=== PATIENT | male | born 1945 | race Caucasian/White ===

== ENCOUNTER 2017-04-29 17:12 | Inpatient (IN) | payer MEDICARE, OTHER ==
[~2017-04-29] VITALS: Ht 177.8 cm; Wt 86.7 kg
--- NOTE | 2017-04-29 17:12 | NUR ---
ARRIVAL PT TO 2 VIA EMS. PT ALERT AND COOP. NO ACUTE DISTRESS. PT TRANSFERRED TO BED WITH LOTS OF PAIN NOTED UPON TRANSFER. PT PLACED ON MONITOR AND TRIAGE DONE
[2017-04-29] MEDS ORDERED: TORADOL ONE (18:20)
[2017-04-29] MEDS ORDERED: TORADOL IV STA (18:31)
[2017-04-29 18:55] LABS: BASOPHIL # 0.1 10^3/uL (0.0-0.1); BASOPHIL % 0.7 % (0.0-0.2); EOSINOPHIL # 0.3 10^3/uL (0.0-0.2); EOSINOPHIL % 3.4 % (0.0-5.0); HEMATOCRIT 33.8 % (37.0-53.0); HEMOGLOBIN 10.1 g/dL (13.9-16.3); LYMPHOCYTES # 1.1 10^3/uL (1.0-4.8); MEAN CELL HGB 22.1 pg (26-34); MEAN CELL HGB CONCENTRATION 29.9 g/dL (33-37); MEAN PLATELET VOLUME 8.7 fL (7.8-11.0); MONOCYTES # 0.7 10^3/uL (0.3-0.8); MONOCYTES % 8.9 % (5.0-12.0); NEUTROPHILS % 72.9 % (41.0-85.0); WHITE BLOOD CELL 8.2 10^3/uL (4.5-11.0)
--- NOTE | 2017-04-29 19:10 | NUR ---
RETURNED TO FROM CT
[2017-04-29 19:20] LABS: CALCIUM 8.7 mg/dL (8.4-10.5); CARBON DIOXIDE 27.7 mmol/L (20.0-32)
--- NOTE | 2017-04-29 19:22 | DIREP ---
PROCEDURE: CT SPINE LUMBAR W/O TECHNIQUE:Axial cuts were obtained through the lumbar spine. The images were viewed at bone settings. COMPARISON:None. INDICATIONS:pain, sudden onset back pain, no injury FINDINGS: ALIGNMENT:Normal. VERTEBRAE:Normal. PARASPINAL AREA:Normal. OTHER:No additional findings. LUMBAR DISC LEVELS T12-L1:Normal. L1-L2:Normal. L2-L3:Mild broad-based disc bulge without significant stenosis. L3-L4:Mild broad-based disc bulge with facet sclerosis and hypertrophy. No significant stenosis L4-L5:Small broad-based disc bulge. There is disc and osteophyte, with large anteriorly directed osteophyte. Moderate facet sclerosis and hypertrophy. No significant stenosis L5-S1:Small broad-based disc bulge without significant stenosis CONCLUSION:Multiple disc bulges. No significant stenosis is identified Dictated by: Montana Jackman MD on 04/29/2017 at 07:19 PM
--- NOTE | 2017-04-29 19:29 | DIREP ---
PROCEDURE:CT SPINE THORACIC W/O COMPARISON:None. INDICATIONS:pain, thoracic region, no injury TECHNIQUE:Multi-planar CT images were obtained and created without intravenous contrast. FINDINGS: VERTEBRAE: Mild compressive deformity along the anterior aspect of T7. This is age indeterminate. PARASPINAL AREA:Normal. DISC LEVELS:Normal. ALIGNMENT:Normal. OTHER:Negative. CONCLUSION:Mild age-indeterminate compressive deformity at T7. If clinically relevant, consider MRI or bone scan for further evaluation Dictated by: Montana Jackman MD on 04/29/2017 at 07:23 PM
[2017-04-29 20:04] LABS: BILIRUBIN,URINE NEGATIVE (NEGATIVE); UROBILINOGEN,URINE NORMAL (NEGATIVE)
[2017-04-29 20:12] LABS: APPEARANCE,URINE CLOUDY (CLEAR); UA COLOR YELLOW (YELLOW); WBC,URINE TNTC WBC/HPF (0-2)
[2017-04-29] MEDS ORDERED: ROCEPHIN 1,000 MG in NS 100ML 100 ML IV STA (20:27)
--- NOTE | 2017-04-29 20:27 | ER.PDOC ---
General Chief Complaint: Lower Back Pain or Injury Stated Complaint: BACK PAIN TRAVEL OUT OF US: No Time seen by MD: 19:24 Source: patient, family Exam Limitations: no limitations History of Present Illness Timing/Duration: 24 hours Severity: severe Associated Symptoms: denies symptoms Allergies: Coded Allergies: clopidogrel (Verified Allergy, Severe, SEIZURE, 04/29/17) Family History Significant Family History: no pertinent family hx Social History Smoking: non-smoker Alcohol Use: none Drug Use: none Review of Systems Constitutional: denies fever EENTM: denies throat pain Respiratory: denies cough Gastrointestinal: denies abdominal pain Genitourinary: denies dysuria Musculoskeletal: back pain Psychiatric/Neurological: anxiety All Other Systems: Reviewed and Negative Physical Exam General Appearance: Anxious, Severe Distress EENT: eyes nml inspection, nml ENT inspection, pharynx nml Neck: Non-Tender, Full Range of Motion Respiratory: chest non-tender, lungs clear, normal breath sounds CVS: reg rate & rhythm Gastrointestinal: Normal Bowel Sounds, No Organomegaly, No Pulsatile Mass Back: Normal Inspection, No CVA Tenderness Extremities: Normal Range of Motion, Non-Tender, Normal Inspection Neurologic/Psychiatric: category director II-XII NML as Tested Skin: Normal Color Lymphatic: No Adenopathy Results/Orders Results/Orders Laboratory Tests Test 04/29/17 18:50 04/29/17 20:00 White Blood Count 8.2 10^3/uL (4.5-11.0) Red Blood Count 4.57 10^6/uL (4.50-5.90) Hemoglobin 10.1 g/dL (13.9-16.3) Hematocrit 33.8 % (37.0-53.0) Mean Corpuscular Volume 74.0 fL (78-100) Mean Corpuscular Hemoglobin 22.1 pg (26-34) Mean Corpuscular Hemoglobin Concent 29.9 g/dL (33-37) Red Cell Distribution Width 16.0 % (11.5-14.5) Platelet Count 256 10^3/uL (150-400) Mean Platelet Volume 8.7 fL (7.8-11.0) Neutrophils (%) (Auto) 72.9 % (41.0-85.0) Lymphocytes (%) (Auto) 14.0 % (24.0-44.0) Monocytes (%) (Auto) 8.9 % (5.0-12.0) Neutrophils # (Auto) 6.0 10^3/uL (1.8-7.7) Lymphocytes # (Auto) 1.1 10^3/uL (1.0-4.8) Monocytes # (Auto) 0.7 10^3/uL (0.3-0.8) Absolute Immature Granulocyte (auto 0.01 10^3 u/L (0-2) Eosinophils % 3.4 % (0.0-5.0) Basophils % 0.7 % (0.0-0.2) Basophils # 0.1 10^3/uL (0.0-0.1) Eosinophil Count 0.3 10^3/uL (0.0-0.2) Sodium Level 143 mmol/L (132-145) Potassium Level 4.3 mmol/L (3.6-5.2) Chloride Level 107.0 mmol/L (96-109) Carbon Dioxide Level 27.7 mmol/L (20.0-32) Anion Gap 12.6 Blood Urea Nitrogen 25 mg/dL (7-18) Creatinine 1.60 mg/dL (0.59-1.40) Estimated GFR () 51.5 BUN/Creatinine Ratio 15.0 Glucose Level 110 mg/dL (70-110) Calcium Level 8.7 mg/dL (8.4-10.5) Total Bilirubin 0.3 mg/dL (0.2-1.0) Aspartate Amino Transf (AST/SGOT) 13 U/L (0-35) Alanine Aminotransferase (ALT/SGPT) 26 U/L (12-78) Alkaline Phosphatase 68 U/L (50-136) Total Protein 6.7 g/dL (6.4-8.2) Albumin 3.6 g/dL (3.4-5.0) Globulin 3.1 Percent Immature Gran (Cell Imm) 0.10 % (0.00-0.50) Urine Collection Type Void Urine Color Yellow (YELLOW) Urine Appearance Cloudy (CLEAR) Urine Bilirubin Negative MG/DL (NEGATIVE) Urine Ketones Negative (NEGATIVE) Urine Specific [place] 1.010 (1.005-1.035) Urine pH 8 (5.0-6.0) Urine Protein 100 mg/dl (NEGATIVE) Urine Urobilinogen Normal (NEGATIVE) Urine Nitrate Negative (NEGATAIVE) Urine Leukocyte Esterase 500/ul 2+ (NEGATIVE) Urine Blood 150 3+ (NEGATIVE) Urine RBC 0-2 RBC/HPF (NONE SEEN) Urine WBC Tntc WBC/HPF (0-2) Urine Squamous Epithelial Cells Few #/HPF (FEW) Urine Triple Phosphate Crystals 0-1 #/HPF (NONE SEEN) Urine Amorphous Sediment Large (NONE SEEN) Urine Bacteria Many (NONE SEEN) Urine Glucose Normal (NEGATIVE) Administered Medications Medications (Trade) Dose Ordered Sig/Eusebio Route PRN Reason Start Time Stop Time Status Last Admin Dose Admin Ketorolac Tromethamine (Toradol) 30 mg STAT STAT IV 04/29/17 18:31 04/29/17 18:33 DC 04/29/17 18:[address] lumbar + discs old compression frx t7 ua=uti rocephin 1 gram ivpb d/c with cipro tylenol #3 Departure Time of Disposition: 20:34 Disposition: 01 HOME, SELF-CARE Impression: Primary Impression: Low back pain Additional Impression: UTI (urinary tract infection) Condition: Stable Referrals: PCP,UNKNOWN (PCP) PRIMARY CARE PROVIDER Additional Instructions: cipro/ tyleno#3 f/u with for MRI VERN BERNARD MD Apr 29, 2017 20:27
--- NOTE | 2017-04-29 20:35 | NUR ---
PLAN OF CARE PT REQUESTED AND PROVIDED WITH DRINK OF WATER, FAMILY MEMBERS AT BEDSIDE. PRESCRIPTION GIVEN TO ANOTHER FAMILY MEMBER TO TAKE TO [facility] TO GET FILLED.
[2017-04-29] MEDS ORDERED: NS 100ML 100 ML IV ONE (20:37)
[2017-04-29] MEDS ORDERED: ROCEPHIN ONE (20:37)
--- NOTE | 2017-04-29 21:00 | NUR ---
PAIN DR BERNARD UPDATED ON PT'S REQUEST FOR PAIN MED BEFORE HE IS DISCHARGED. MORPHINE 2MG IV ORDERED.
[2017-04-29] MEDS ORDERED: MORPHINE SULFATE ONE (21:01)
[2017-04-29] MEDS ORDERED: MORPHINE SULFATE IV STA (21:03)
--- NOTE | 2017-04-29 21:21 | NUR ---
PAIN PT NOT ABLE TO TOLERATE SITTING UP. INCREASED PAIN WITH ELEVATION OF HOB. DR BERNARD UPDATED.
--- NOTE | 2017-04-29 21:26 | NUR ---
DR ANA BERNARD LEFT MESSAGE ON PHONE WITH DR PEREZ
--- NOTE | 2017-04-29 21:34 | NUR ---
DR ANA PEREZ RETURNED PHONE CALL, DR BERNARD TALKING ON PHONE WITH DR PEREZ
--- NOTE | 2017-04-29 21:50 | NUR ---
ADMIT PT AND FAMILY MEMBERS VERBALIZED UNDERSTANDING OF ADMIT
[2017-04-29] MEDS ORDERED: MORPHINE SULFATE IV PRN (22:00)
[2017-04-29] MEDS ORDERED: ZOFRAN IV PRN (22:30)
[2017-04-29] MEDS: LOVENOX SQ SCH ×2 (22:30→22:46)
[2017-04-29] MEDS: ROCEPHIN 1,000 MG in NS 100ML 100 ML IV SCH (22:30)
[2017-04-29] MEDS ORDERED: TYLENOL PO PRN (22:30)
[2017-04-29] MEDS: FLEXERIL PO PRN (22:46)
--- NOTE | 2017-04-29 23:41 | PRM.ACF1 ---
Admission Criteria Forms BACK PAIN Clinical Indications for Admission to Inpatient Care (Place 'X' for any and all applicable criteria): Admission is indicated for ANY ONE of the following (1)(2)(3)(4)(5)(6): [ X]I. Inpatient admission required rather than observation care (Also use Back Pain: Observation Care as appropriate) because of ANY ONE of the following [ X]a) Severe pain requiring acute inpatient management [ ]b) Immediate inpatient surgery [ ]c) Other condition, treatment or monitoring requiring inpatient admission [ ]II. Spine fracture with significant damage or threat of damage to vertebral column or spinal cord [ ]III. Progressive or severe neurologic deficit [ ]IV. Suspected spinal infection (e.g., epidural abscess, vertebral osteomyelitis)(10) [ ]V. Suspected cause requires inpatient treatment (eg, aortic dissection) [ ]. Cauda equina syndrome as indicated by ANY ONE of the following (9): [ ]a) Bowel dysfunction [ ]b) Bladder dysfunction [ ]c) Saddle anesthesia [ ]d) Neurologic abnormality suggesting cauda equina impingement Extended stay beyond goal length of stay may be needed for (3)(25): [ ]a) Spinal cord compression from stenosis, disk, or tumor (8)(9) [ ]b) Traumatic or pathologic vertebral fracture (33) [ ]c) Vertebral infection(10) [ ]d) Severe pain that is difficult to control [ ]e) Older patients(65 years or older) The original [employer] content created by [employer] has been revised. The portions of the content which have been revised are identified through the use of italic text or in bold, and [facility] has neither reviewed nor approved the modified material. All other unmodified content is copyright [employer]. Please see references footnoted in the original [employer] edition 2016 Physician order is complete/pr: Yes Is [facility] added/comple: YES DANIELLE HERNANDEZ [facility] Apr 29, 2017 23:41
[2017-04-30] MEDS ORDERED: NS 1000ML 1,000 ML ONE (00:10)
[2017-04-30] MEDS ORDERED: OMEP20CA12 PO (00:14)
[2017-04-30] MEDS ORDERED: RAMI10CA PO (00:14)
[2017-04-30] MEDS ORDERED: METO50TA2 PO (00:14)
[2017-04-30] MEDS ORDERED: TAMS-14 PO (00:14)
[2017-04-30] MEDS ORDERED: ALPR0.5T PO (00:14)
[2017-04-30] MEDS ORDERED: [UNRECOGNIZED DRUG - CODE] PO (00:15)
[2017-04-30] MEDS: NS 1000ML 1,000 ML IV SCH ×3 (00:21→20:55)
[2017-04-30] MEDS ORDERED: MORPHINE SULFATE ONE (00:25)
[2017-04-30 00:35] VITALS: BP 155/98
--- NOTE | 2017-04-30 04:29 | NUR ---
during 399 vitals pt's o2 saturation was 85 with breathing technique only came up to 87, placed pt on 2 liters of o2, o2 saturation up to 93 without focused breathing, will notify and keep pt on 2 liters throughout shift
[2017-04-30 04:30] VITALS: BP 152/86
--- NOTE | 2017-04-30 06:45 | NUR ---
REPORT RECEIVED REPORT ON PT. THIS NURSE ASSUMED CARE.
[2017-04-30 07:30] VITALS: BP 150/74
[2017-04-30] MEDS ORDERED: ASPIRIN ONE (08:27)
[2017-04-30] MEDS: XANAX PO SCH (08:31)
[2017-04-30] MEDS: LOPRESSOR PO SCH ×2 (08:33→20:56)
[2017-04-30] MEDS: FLOMAX PO SCH (08:34)
[2017-04-30] MEDS: FLEXERIL PO PRN ×2 (08:34→16:43)
[2017-04-30] MEDS: ASPIRIN EC PO SCH (08:34)
[2017-04-30] MEDS: ALTACE PO SCH (09:20)
[2017-04-30] MEDS: PROTONIX PO SCH (09:20)
--- NOTE | 2017-04-30 11:00 | NUR ---
DISCHARGE PLAN CM VISITED WITH PATIENT CORNERING HIS DISCHARGE PLAN AND NEED. PATIENT STATED HE LIVES @ HOME WITH HIS . HE STATED HE LIVES OUT OF TOWN IN [facility] AND IS IN TOWN VISITING HIS FAMILY. PATIENT IS INDEPENDENT ON ADLS AND DOES NOT USE ANY TYPE OF DME FOR ASSISTANCE. PATIENT DENIES NEEDING ADDITIONAL RESOURCES @ THIS TIME. CONTACT INFORMATION PROVIDED. CURRENT GOAL FOR PATIENT IS TO RETURN BACK HOME WITH TO ROUTINE SELF CARE UPON DISCHARGE. CM TO CONTINUE TO FOLLOW PATIENTS PLAN OF CARE AND FOR FURTHER DISCHARGE NEEDS.
[2017-04-30 11:30] VITALS: BP 114/63
[2017-04-30] MEDS: ULTRAM PO PRN ×2 (12:50→19:14)
--- NOTE | 2017-04-30 14:54 | NUR ---
STATUS PT RESTING FLAT IN BED WITH EYES CLOSED AT THIS TIME. RESP EVEN AND NONLABORED. AT BEDSIDE. PT AWAKENED LONG ENOUGH TO ASSESS PAIN. PT STATED HE WAS NOT HURTING OVER A 3 AT THIS TIME. CALL LIGHT LEFT IN REACH.
[2017-04-30 15:11] VITALS: BP 118/68
--- NOTE | 2017-04-30 18:45 | NUR ---
received report from 0630 shift
[2017-04-30 19:10] VITALS: BP 132/86
--- NOTE | 2017-04-30 19:14 | NUR ---
Ultram 50mg po given for pain
[2017-04-30] MEDS ORDERED: DILAUDID IV PRN (20:00)
[2017-04-30] MEDS: ROCEPHIN 1,000 MG in NS 100ML 100 ML IV SCH (22:14)
[2017-04-30] MEDS: LOVENOX SQ SCH ×2 (22:15→22:21)
[2017-05-01] MEDS: ULTRAM PO PRN (00:01)
--- NOTE | 2017-05-01 00:01 | NUR ---
ultram 50mg po given for pain
[2017-05-01 00:17] VITALS: BP 135/75
[2017-05-01] MEDS: FLEXERIL PO PRN (03:22)
--- NOTE | 2017-05-01 03:24 | NUR ---
FLEXERIL 10MG PO GIVEN FOR BACK PAIN
[2017-05-01 05:08] VITALS: BP 150/99
[2017-05-01] MEDS: NS 1000ML 1,000 ML IV SCH (05:33)
--- NOTE | 2017-05-01 06:30 | NUR ---
REPORT RECEIVED REPORT ON PT.THIS NURSE ASSUMED CARE. PT LAYING FLAT IN BED. RESTING WITH EYES CLOSED. RESP EVEN AND NONLABORED. O2 VIA NC IN PLACE AT 2 LPM. CALL LIGHT IN REACH.
[2017-05-01 08:41] VITALS: BP 144/88
[2017-05-01] MEDS: FLOMAX PO SCH (08:45)
[2017-05-01] MEDS: PROTONIX PO SCH (08:45)
[2017-05-01] MEDS: ALTACE PO SCH (08:45)
[2017-05-01] MEDS: LOPRESSOR PO SCH (08:45)
[2017-05-01] MEDS: ASPIRIN EC PO SCH (08:46)
[2017-05-01] MEDS: XANAX PO SCH (08:46)
[2017-05-01 09:03] LABS: BASOPHIL # 0.1 10^3/uL (0.0-0.1); BASOPHIL % 0.6 % (0.0-0.2); EOSINOPHIL # 0.3 10^3/uL (0.0-0.2); EOSINOPHIL % 2.9 % (0.0-5.0); HEMATOCRIT 34.9 % (37.0-53.0); HEMOGLOBIN 10.3 g/dL (13.9-16.3); LYMPHOCYTES # 1.3 10^3/uL (1.0-4.8); LYMPHOCYTES % 12.9 % (24.0-44.0); MEAN CELL HGB 21.9 pg (26-34); MEAN CELL HGB CONCENTRATION 29.5 g/dL (33-37); MEAN CORP VOLUME 74.1 fL (78-100); MEAN PLATELET VOLUME 8.8 fL (7.8-11.0); MONOCYTES % 10.5 % (5.0-12.0); NEUTROPHIL # 7.2 10^3/uL (1.8-7.7); NEUTROPHILS % 72.9 % (41.0-85.0); WHITE BLOOD CELL 9.8 10^3/uL (4.5-11.0)
[2017-05-01 09:20] LABS: CALCIUM 8.7 mg/dL (8.4-10.5); CARBON DIOXIDE 26.8 mmol/L (20.0-32)
--- NOTE | 2017-05-01 12:21 | PRM.DC ---
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 Noted to have significant UTI was suspicious of pyelonephritis, CT scan of the lumbar and thoracic spine showed which fracture in the thoracic spine with multiple disc disease at different levels. The patient was also admitted with acute renal failure resolved with IV fluid management. He was indicated results of his workup, will be discharged on a course of antibiotic. The patient is visiting in our town and he is planning to go home with the results of the CT scan to follow-up with his primary physician for back pain management and continuing care for UTI. He received evaluation and therapy by. He, he was able to ambulate with some pain, muscle strain of the back was noted Patient History: Cerebrovascular disorder 33 FATHER Congestive heart failure 32 MOTHER Diabetes mellitus 32 MOTHER G8 BROTHER Hypertension 32 MOTHER 33 FATHER Parkinson's disease G8 BROTHER History Present Illness: General: Alert, Oriented X3, Cooperative HEENT: PERRLA, EOMI Neck: Supple, No JVD, No thyromegaly Lungs: Clear to auscultation Heart: Regular rate, Normal S1, Normal S2 Abdomen: Normal bowel sounds, Soft Extremities: No clubbing, No cyanosis Skin: No rashes Scheduled Alprazolam (Xanax), 0.5 MG PO DAILY, (Reported) Aspirin (Aspir-Mary), 325 MG PO DAILY, (Reported) Metoprolol Tartrate 50MG (L[place]er 50MG), 1 TAB PO BID, (Reported) Omeprazole (Omeprazole), 20 MG PO DAILY, (Reported) Ramipril 10MG (Altace 10MG), 2 CAP PO DAILY, (Reported) Tamsulosin Hcl (Flomax), 0.4 MG PO DAILY, (Reported) Course Blood Pressure Systolic: 144 Blood Pressure Diastolic: 88 Blood Pressure Mean: 106 Plan Assessment - Severe low back pain - UTI with pyonephritis - hypertension - history of coronary artery disease -Mild age-indeterminate compressive deformity at T7. Discharge Disposition: Stable Plan - antibiotics by mouth; Levaquin 500 milligrams by mouth daily for 7 days - pain management; patient was given a prescription for Ultram 50 mg by mouth twice a day for 7 days - patient was given results of scans of the back to be reviewed by his primary physician in his hometown for further management of chronic back pain and vertebral disc disease WYATT THURMAN MD May 01, 2017 12:21
[2017-05-01 13:04] VITALS: BP 116/71
[2017-05-01] MEDS ORDERED: LEVO500T8 PO (13:48)
[2017-05-01] MEDS ORDERED: TRAM-28 PO (13:53)
[2017-05-01 14:10] VITALS: BP 116/71
== END 2017-05-01 14:10 | disposition home or self-care (01) | DRG 690 ==
LOC: EDUNIT# 17:12 → EDBD 17:12 → ER 17:12 → MS 21:43 → OBSVTOIN 22:26
PROVIDERS: ADMIT Internal Medicine; ATTEND Internal Medicine
DX: N12 Tubulo-interstitial nephritis, not specified as acute or chronic (principal); N17.0 Acute kidney failure with tubular necrosis; M43.8X4 Other specified deforming dorsopathies, thoracic region; I25.10 Atherosclerotic heart disease of native coronary artery without angina pectoris; F41.9 Anxiety disorder, unspecified; Z88.8 Allergy status to other drugs, medicaments and biological substances; I10 Essential (primary) hypertension
CPT/HCPCS: 36415; 72128; 72131; 80053; 81000; 85025; 87077; 87086; 87186; 96365; 96375; 97162; 99285; G0378; J0696; J1650; J1885; J2270; J2405; J7030; J7050; G8978-CI; G8979-CI; G8980-CI